=== PATIENT | male | born 1970 | race Caucasian/White ===

== ENCOUNTER 2018-10-17 08:06 | Emergency (ER) | payer OTHER ==
[2018-10-17 08:16] VITALS: BP 136/98; PULSE 98; RESP 20; TEMP 97.8; O2SAT 95
[2018-10-17 08:54] LABS: BASOPHILS % (AUTO) 1 % (0-3); EOSINOPHILS % (AUTO) 2 % (0-9); HEMATOCRIT 39 % (39-53); LYMPHOCYTES % (AUTO) 14.3 % (10-50); MEAN CORPUSCULAR HEMOGLOBIN 29.6 pg (27.0-32.0); MEAN CORPUSCULAR HGB CONC 33.6 gm/dl (32.0-36.0); MEAN CORPUSCULAR VOLUME 88 fL (80-100); MONOCYTES % (AUTO) 7.3 % (0-12)
[2018-10-17 09:07] LABS: CALCIUM 9.7 mg/dl (8.5-10.1); CARBON DIOXIDE 26.7 mEq/L (21-32); CREATININE 1.69 mg/dl (0.80-1.30); CRP INFLAMMATORY 21.7 mg/dl (0.00-0.33); POTASSIUM 4.7 mMol/L (3.5-5.1)
== END 2018-10-17 09:55 | disposition home or self-care (01) | DRG 949 ==
LOC: ED 08:06
DX: T81.89XD Other complications of procedures, not elsewhere classified, subsequent encounter (principal); L03.115 Cellulitis of right lower limb; S81.801D Unspecified open wound, right lower leg, subsequent encounter; R94.4 Abnormal results of kidney function studies
CPT/HCPCS: 36415; 80048; 85025; 99282; A6402